=== PATIENT | female | born 1980 | race Caucasian/White ===

== ENCOUNTER 2024-05-16 14:34 | Outpatient (CLI) | payer OTHER, SELFPAY | END 2024-05-16 14:35 | disposition home or self-care (01) | PROVIDERS: Visit Provider Family Medicine | DX: M25.571 Pain in right ankle and joints of right foot (principal); M25.541 Pain in joints of right hand | CPT/HCPCS: 84550; 86039; 86431 ==

== ENCOUNTER 2024-05-21 22:16 | Outpatient (REF) | payer OTHER, SELFPAY ==
[2024-05-21 23:08] LABS: Basophils Absolute Auto 0.05 K/uL (0.00-0.30); Basophils Percent Auto 0.7 % (0.0-3.0); Eosinophils Absolute Auto 0.17 K/uL (0.00-0.50); Eosinophils Percent Auto 2.5 % (0.0-7.0); Hematocrit 39.4 % (33.0-51.0); Hemoglobin* 12.9 gm/dL (12.0-16.0); Immature Granulocytes Abs Auto 0.04 K/uL (0.00-0.30); Immature Granulocytes Pct Auto 0.6 %; Lymphocytes Percent Auto 20.4 % (20-44); Mean Corpuscular HGB Conc 33 gm/dL (32-36); Mean Corpuscular Hemoglobin 31 pg (26-34); Mean Corpuscular Volume 95 fL (80-100); Monocytes Percent Auto 6.7 % (0.0-11.0); Neutrophils Absolute Auto 4.75 K/uL (1.7-7.0); Neutrophils Percent Auto 69.1 % (42.0-72.0); Platelet Count* 305 K/uL (140-440); RDW Coefficient of Variation % 12.4 % (11.5-15.5); Red Blood Count 4.14 m/uL (4.00-5.20); White Blood Count* 6.87 K/uL (4.50-11.00)
[2024-05-21 23:10] LABS: Albumin* 4.6 g/dL (3.3-5.0)
[2024-05-21 23:13] LABS: Alanine Aminotransferase* 12 U/L (4-35); Alkaline Phosphatase* 63 U/L (40-150); Aspartate Amino Transferase* 18 U/L (12-35); Bilirubin Direct* 0.4 mg/dL (0.0-0.5); Bilirubin Total* 0.5 mg/dL (0.1-1.5); Total Protein* 7.6 g/dL (6.0-8.3)
[2024-05-21 23:45] LABS: Hepatitis B Surface Antigen* Negative (Negative)
[2024-05-21 23:49] LABS: Slide Review Reflex No
[2024-05-22 00:02] LABS: Hepatitis C Virus Antibody* Negative (Negative)
[2024-05-22 00:05] LABS: Hepatitis B Surface Antibody* Negative (Negative)
== END 2024-05-21 22:17 | disposition home or self-care (01) ==
LOC: NPINS 22:16
PROVIDERS: Visit Provider Dermatology
DX: L40.0 Psoriasis vulgaris (principal)
CPT/HCPCS: 80076; 85025; 86480; 86706; 86803; 87340

== ENCOUNTER 2025-08-28 11:48 | Outpatient (CLI) | payer OTHER, SELFPAY | END 2025-08-28 11:49 | disposition home or self-care (01) | PROVIDERS: Visit Provider Physician Assistant Medical | DX: L40.9 Psoriasis, unspecified (principal); R59.9 Enlarged lymph nodes, unspecified | CPT/HCPCS: 84443; 86480 ==

== ENCOUNTER 2025-09-08 08:33 | Outpatient (CLI) | payer OTHER, SELFPAY ==
--- NOTE | 2025-09-08 09:00 | CRLHL7_ITS ---
For Patients: As a result of the Century Cures Act, medical imaging exams and procedure reports are released immediately into your electronic medical record. You may view this report before your referring provider. If you have questions, please contact your health care provider. INDICATION: LEFT SIDE NECK AND JAW PAIN COMPARISON: None TECHNIQUE: A CT volumetric acquisition was performed of the neck during intravenous infusion of 93 cc Isovue 370 nonionic intravenous contrast. Please note that all CT scans at this facility use dose modulation, iterative reconstruction, and/or weight-based dosing when appropriate to reduce radiation dose to as low as reasonably achievable. FINDINGS: The CT images demonstrate normal aeration of the mastoid air cells and middle ear cavities. The paranasal sinuses are clear with the exception of tiny mucous retention cyst in the left maxillary sinus which measures 7 millimeters. The nasopharynx appears normal. The parotid and submandibular glands are of normal size and have uniform enhancement. The oropharynx appears normal. The valleculae, epiglottis, aryepiglottic folds and piriform sinuses appear normal. There is a normal appearance of the larynx and subglottic trachea. The thyroid gland is of normal size and has uniform density. There is no evidence of lymphadenopathy within the anterior and posterior cervical triangles or within the supraclavicular region. Osseous structures are within normal limits including the temporomandibular joints. Lung apices are clear. IMPRESSION: Normal left-sided structures without cause for pain. Please note that all CT scans at this facility use dose modulation, iterative reconstruction, and/or weight-based dosing when appropriate to reduce radiation dose to as low as reasonably achievable. Dictated by Sourav Tamez MD @ 09/08/2025 10:01:37 AM (Electronically Signed)
== END 2025-09-08 08:34 | disposition home or self-care (01) ==
LOC: CT 08:34
PROVIDERS: PCP Nurse Practitioner Family; Visit Provider Physician Assistant Medical
DX: M54.2 Cervicalgia (principal)
CPT/HCPCS: 70491; Q9967